=== PATIENT | female | born 1975 | race Caucasian/White ===

== ENCOUNTER 2017-07-30 17:01 | Emergency (ER) | payer SELFPAY ==
[2017-07-30] MEDS ORDERED: methylPREDNISolone Sod Succ/PF 125 MG/2 ML VIAL ONE (17:33)
[2017-07-30] MEDS ORDERED: Famotidine/PF 20 mg/2ml Vial ONE (17:33)
[2017-07-30] MEDS ORDERED: diphenhydrAMINE 50 MG/ML VIAL ONE (17:33)
[2017-07-30] MEDS ORDERED: Ondansetron HCl/PF 4 MG/2 ML Vial ONE (17:45)
== END 2017-07-30 19:00 | disposition home or self-care (01) ==
LOC: NAV ERS 17:01
DX: L50.9 Urticaria, unspecified (principal); K21.9 Gastro-esophageal reflux disease without esophagitis; Z79.899 Other long term (current) drug therapy; Z79.82 Long term (current) use of aspirin
CPT/HCPCS: 96361; 96374; 96375; J1200; J2405; J2930; S0028